=== PATIENT | male | born 1970 | race Caucasian/White ===

== ENCOUNTER 2019-09-26 20:06 | Emergency (ER) | payer MEDICAID ==
[2019-09-26 21:29] VITALS: BP 121/62; O2SAT 94
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
[2019-09-26 22:09] VITALS: PULSE 92
--- NOTE | 2019-09-27 08:43 | XRAY ---
Indication: Constipation. Obstruction. Multiple contiguous axial images obtained through the abdomen and pelvis without contrast as ordered. Comparison: None Lung bases demonstrates bibasilar atelectasis/scarring, right greater than left. Tiny left base calcified granuloma. No infiltrate or effusion. Heart is not enlarged. Noncontrasted stomach and bowel loops appear nonobstructed. Normal appendix. There is moderate diffuse scattered colonic fecal debris throughout. Also large rectal impaction. No free fluid/air. Remaining liver, gallbladder, pancreas, spleen, adrenal glands, kidneys, ureters, bladder, and aorta appear unremarkable for noncontrast exam. Osseous structures intact with mild dextroscoliosis centered at L1 and mild degenerative changes of both hips. No ventral or inguinal hernias. Impression: 1. Diffuse fecal stasis with rectal impaction. 2. Incidental bibasilar atelectasis/scarring, left base calcified granuloma, and chronic bony findings. 3. Remaining CT abdomen/pelvis without contrast exam is negative.
== END 2019-09-26 23:12 | disposition home or self-care (01) ==
LOC: ED 20:06
DX: K59.00 Constipation, unspecified (principal); K56.41 Fecal impaction; Z79.899 Other long term (current) drug therapy
CPT/HCPCS: 74176; 99283

== ENCOUNTER 2019-11-17 23:32 | Emergency (ER) | payer MEDICAID ==
--- NOTE | 2019-11-18 00:21 | ERPHSYRPT ---
- History of Present Illness Source: EMS Exam Limitations: other (Pt w TBI) Patient Subjective Stated Complaint: Urinary retention without urine output in the 15 hours Triage Nursing Assessment: Pt presented alert with evidence of TBI and mostly non-verbal. EMS reported urinary retention as chief complaint per care home staff. Staff advised that the patient had not produced urine in roughly 15 hours with oral intake of roughly 64 fl oz. Pupils 3mm reactive. Oral mucosa pink/dry. neck supple non-tender. Symmetrical chest expansion. Abdomen soft non- tender with distention noted over the bladder. Contractures noted to the bilateral upper exremities. Physician History: Pt w h/o UTI/Urinary retention presents from care home w urinary retention [id number]. Timing/Duration: other (15hrs) Activites at Onset: none Quality: other (Unable to relate) Severity of Pain-Max: none Severity of Pain-Current: none Modifying Factors: Improves With: nothing Associated Symptoms: other (Pt noncommunicative) Allergies/Adverse Reactions: levetiracetam [From [facility]] Allergy (Verified 11/17/19 23:36) Home Medications: AMITRIPTYLINE HCL 50 mg Tab [AMITRIPTYLINE HCL 50 mg Tablet] 100 mg PO HS 09/26/19 [History] Baclofen 10 mg [Lioresal 10 mg] 10 mg PO QID 09/26/19 [History] Bisacodyl [Laxative] 5 mg PO Q12H PRN PRN 09/26/19 [History] Cetirizine HCl [Allergy Relief] 10 mg PO Q12H PRN PRN 09/26/19 [History] Fluticasone Furoate [Arnuity Ellipta] 50 mcg IH DAILY 09/26/19 [History] Lansoprazole [Prevacid] 30 mg PO DAILY 09/26/19 [History] Multivitamin/Iron/Folic Acid [Centrum Adults Tablet] 1 tab PO DAILY 09/26/19 [History] PARoxetine HCL [Paroxetine HCl] 40 mg PO DAILY 09/26/19 [History] Polyethylene Glycol 3350 17 gm [Miralax Powder 17GM PACKET] 17 gm PO DAILY 09/26/19 [History] Potassium Chloride 20 meq PO DAILY 09/26/19 [History] Selenium Sulfide [Tersi Foam] 70 gm TP 3XW 09/26/19 [History] Sennosides [Senna] 2 tab PO DAILY 09/26/19 [History] Simvastatin 20 mg PO DAILY 09/26/19 [History] Sodium Phosphate,[place]-Dibasic [Fleet Enema] 133 ml RC Q12H PRN PRN 09/26/19 [History] clonazePAM [Clonazepam] 0.5 mg PO BID 09/26/19 [History] gemfibroziL [Gemfibrozil] 600 mg PO DAILY 09/26/19 [History] lamoTRIgine [Lamotrigine] 100 mg PO BID 09/26/19 [History] risperiDONE [Risperidone] 2 mg PO BID 09/26/19 [History] Hx Tetanus, Diphtheria Vaccination/Date Given: No Hx Influenza Vaccination/Date Given: Yes Hx Pneumococcal Vaccination/Date Given: No Travel Risk - International Travel Have you traveled outside of the country in past 3 weeks: No - Coronavirus Screening Are you exhibiting any of the following symptoms?: No Close contact with a COVID-19 positive Pt in past 14-21 Days: No - Past Medical History Pertinent Past Medical History: Yes Neurological History: Seizures, Other ENT History: No Pertinent History Cardiac History: No Pertinent History Respiratory History: No Pertinent History Endocrine Medical History: No Pertinent History Musculoskeletal History: Other GI Medical History: GERD History: Other Psycho-Social History: Anxiety, Depression Male Reproductive Disorders: No Pertinent History Other Medical History: hypertriglicedemia, neuro muscular dysfunciton of blatter, TBI, quadraplageia, GERD, hyperlipidemia - Past Surgical History Past Surgical History: (unknown at this time 09/26/19) - Social History Smoking Status: Never smoker Exposure to second hand smoke: No Drug Use: none Patient Lives Alone: No Significant Family History: no pertinent family hx - Review of Systems All Other Systems: Unable due to condition - Nursing Vital Signs Nursing Vital Signs: Initial Vital Signs Temperature 97.8 F 11/17/19 23:33 Pulse Rate 69 11/17/19 23:33 Respiratory Rate 18 11/17/19 23:33 Blood Pressure 105/66 11/17/19 23:33 O2 Sat by Pulse Oximetry 95 11/17/19 23:33 Pain Scale Pain Intensity 0 - Physical Exam General Appearance: no apparent distress Eye Exam: PERRL/EOMI Neck Exam: normal inspection Respiratory Exam: normal breath sounds, lungs clear, airway intact, No respiratory distress Cardiovascular Exam: regular rate/rhythm, normal heart sounds, normal peripheral pulses Gastrointestinal/Abdomen Exam: other (Supra-pubic area hard) Male Genital Exam: normal genitalia (Hypospadius) Extremity Exam: other (contractures) Neurologic Exam: alert (Pt alert but oriented x0 which is baseline) Skin Exam: normal color, warm, dry Lymphatic Exam: No adenopathy SpO2: 95 O2 Delivery: Room Air - Course Nursing assessment & vital signs reviewed: Yes Ordered Tests: Active Orders 24 hr Category Date Time Status Nichols [Catheter-[place] Nichols] STAT Care 11/17/19 23:35 Active CULTURE,URINE Stat Lab 11/17/19 00:14 Received UA W/RFX UR CULTURE Stat Lab 11/17/19 00:14 Completed Lab/Rad Data: Laboratory Results 11/17/19 Range/Units 00:14 Urine Color YELLOW (YELLOW) Urine Appearance CLEAR (CLEAR) Urine pH 7.0 (5-6) Ur Specific [place] 1.008 (1.005-1.025) Urine Protein NEGATIVE (Negative) Urine Ketones NEGATIVE (NEGATIVE) Urine Blood MODERATE (0-5) Gabe/ul Urine Nitrite NEGATIVE (NEGATIVE) Urine Bilirubin NEGATIVE (NEGATIVE) Urine Urobilinogen NEGATIVE (0-1) mg/dL Ur Leukocyte Esterase NEGATIVE (NEGATIVE) Urine WBC (Auto) 0-2 (0-5) /HPF Urine RBC (Auto) 11-15 (0-2) /HPF U Epithel Cells (Auto) NONE (FEW) /HPF Urine Bacteria (Auto) NONE SEEN (NEGATIVE) /HPF Urine Culture Reflexed ORDERED SEPARATELY (NO) Urine Glucose NEGATIVE (NEGATIVE) mg/dL - Progress Progress: improved Progress Note: 11/18/19 00:23 Nichols catheter placed per nursing after several attempts(14Fr). 1L urine kerry rangel. Counseled pt/family regarding: need for follow-up - Departure Departure Disposition: Home Clinical Impression: Urinary retention Condition: Stable Critical Care Time: No Referrals: CRYSTAL VITAL MD [Primary Care Provider] - Instructions: Urinary Retention (DC) Additional Instructions: Follow up with urologist or family MD in 1-2 days Return to ER as needed
[2019-11-18 00:22] LABS: Appearance CLEAR (CLEAR); Bilirubin NEGATIVE (NEGATIVE); Blood MODERATE Ery/ul (0-5); Glucose NEGATIVE (NEGATIVE); Ketones NEGATIVE (NEGATIVE); Leukocyte Esterase NEGATIVE (NEGATIVE); Nitrite NEGATIVE (NEGATIVE); Protein,Urine Dip NEGATIVE (Negative); Specific Gravity 1.008 (1.005-1.025); Urobilinogen NEGATIVE mg/dL (0-1); WBC 0-2 /HPF (0-5)
[2019-11-18 00:23] LABS: Bacteria NONE SEEN /HPF (NEGATIVE)
[2019-11-18 00:37] VITALS: BP 108/75; PULSE 60
[2019-11-18 00:56] VITALS: O2SAT 95
== END 2019-11-18 00:48 | disposition home or self-care (01) ==
LOC: ED 23:32
DX: R33.9 Retention of urine, unspecified (principal); Z79.899 Other long term (current) drug therapy
CPT/HCPCS: 51701; 51702; 81001; 87086; 99284

== ENCOUNTER 2019-11-25 16:22 | Observation (INO) | payer MEDICAID ==
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
[2019-11-25] MEDS ORDERED: Sodium Chloride 0.9% 1000 ML 1,000 ML IV STA (16:36)
[2019-11-25] MEDS ORDERED: FEVERALL 650 MG ONE ×2 (16:39→16:48)
[2019-11-25] MEDS ORDERED: FEVERALL 325 MG PR STA (16:39)
[2019-11-25] MEDS ORDERED: Sodium Chloride 0.9% 1000 ML 1,000 ML ONE (16:48)
[2019-11-25] MEDS ORDERED: FEVERALL 650 MG PR ONE (16:51)
--- NOTE | 2019-11-25 17:08 | XRAY ---
Indication: Fever. Comparison: None Portable chest underinflated. Query right base infiltrate versus atelectasis. Remaining heart and left lung unremarkable. Bony thorax intact with minimal degenerative changes.
[2019-11-25 17:30] LABS: Absolute Neutrophil Ct (ANC) 8.87 (1.4-6.9); BASOPHIL % 0.2 % (0.0-0.4); Basophil (Absolute #) 0.02 (0-0.4); Eosinophil % 0.5 % (0.00-5.0); Eosinophil (Absolute #) 0.05 (0-0.5); Hemoglobin 11.6 gm/dl (12.5-18.0); Lymphocyte (Absolute #) 0.56 (1.0-4.6); Lymphocytes % 5.2 % (24.0-44.0); Mean Cell Volume 92.5 fl (78-100); Mean Corpuscular Hemoglobin 29.8 pg (26-32); Mean Corpuscular Hgb Concent. 32.2 g/dl (32-36); Mean Platelet Volume 10.8 fl (7.5-11.0); Monocyte (Absolute #) 1.21 (0.0-1.3); Monocytes % 11.3 % (0.0-12.0); Neutrophil % 82.8 % (36.0-66.0); Platelet Count 250 K/mm3 (150-450); Red Blood Count 3.89 M/mm3 (4.1-5.6); Red Cell Distribution Width 14.2 % (11.5-14.0); White Blood Count 10.7 K/mm3 (4.0-10.5)
[2019-11-25 17:58] LABS: ALBUMIN 3.7 g/dL (3.5-5.0); ALKALINE PHOSPHATASE 175 U/L (38-126); ANION GAP 11.1 MEQ/L (5-15); BLOOD UREA NITROGEN 6 mg/dL (9-20); CHLORIDE 103 mmol/L (98-107); Calcium 8.4 mg/dL (8.4-10.2); Carbon Dioxide 23 mmol/L (22-30); Creatinine 1 0.42 mg/dL (0.66-1.25); Glucose 90 mg/dL (74-106); Potassium 3.7 mmol/L (3.5-5.1); SGOT/AST 34 U/L (17-59); SGPT/ALT 36 U/L (0-50); SODIUM 133 mmol/L (137-145); Total Protein 6.9 g/dL (6.3-8.2)
[2019-11-25 18:04] LABS: INFLUENZA A NEGATIVE (NEGATIVE); INFLUENZA B NEGATIVE (NEGATIVE); RESPIRATORY SYNCTIAL VIRUS NEGATIVE (Negative)
[2019-11-25] MEDS ORDERED: ROCEPHIN 1 Gm-D5w 50 ml Bag** 1 G/50 ML IVPB IV STA (18:04)
[2019-11-25 18:08] LABS: Appearance CLOUDY (CLEAR); Bacteria MANY /HPF (NEGATIVE); Bilirubin NEGATIVE (NEGATIVE); Blood LARGE Ery/ul (0-5); Epithelial Cells FEW /HPF (FEW); Glucose NEGATIVE (NEGATIVE); Ketones NEGATIVE (NEGATIVE); Leukocyte Esterase LARGE (NEGATIVE); Mucus SLIGHT /HPF (NEGATIVE); Nitrite POSITIVE (NEGATIVE); Protein,Urine Dip 100 (Negative); RBC >101 /HPF (0-2); Specific Gravity 1.006 (1.005-1.025); Urobilinogen NEGATIVE mg/dL (0-1); WBC 51-100 /HPF (0-5)
[2019-11-25] MEDS ORDERED: ROCEPHIN 1 Gm-D5w 50 ml Bag** 1 G/50 ML IVPB IV ONE (18:33)
[2019-11-25] MEDS ORDERED: Sodium Chloride 0.9% 500 ML 500 ML IV ONE ×2 (19:01→19:09)
[2019-11-25] MEDS ORDERED: Motrin 100 MG/5 ML PO ONE (19:02)
[2019-11-25] MEDS ORDERED: Motrin 100 MG/5 ML ONE (19:08)
[2019-11-25 19:51] LABS: Slide Review 1 YES
[2019-11-25] MEDS ORDERED: Motrin 100 MG/5 ML PO PRN (21:16)
[2019-11-25] MEDS: LOPID 600 MG PO SCH (21:58)
[2019-11-25] MEDS: lamICTAL 100MG TABLET PO SCH (21:58)
[2019-11-25] MEDS: Klonopin 0.5 MG PO SCH (21:58)
[2019-11-25] MEDS: Risperdal 1 MG PO SCH (21:59)
[2019-11-25] MEDS: LIORESAL 10 MG PO SCH (21:59)
[2019-11-25] MEDS: TYLENOL 325 MG PO PRN (22:01)
[2019-11-26 05:04] LABS: Absolute Neutrophil Ct (ANC) 12.34 (1.4-6.9); BASOPHIL % 0.1 % (0.0-0.4); Basophil (Absolute #) 0.02 (0-0.4); Eosinophil % 0.5 % (0.00-5.0); Eosinophil (Absolute #) 0.08 (0-0.5); Hematocrit 39.7 % (42-50); Hemoglobin 12.6 gm/dl (12.5-18.0); Lymphocyte (Absolute #) 0.95 (1.0-4.6); Lymphocytes % 6.2 % (24.0-44.0); Mean Cell Volume 93.2 fl (78-100); Mean Corpuscular Hemoglobin 29.6 pg (26-32); Mean Corpuscular Hgb Concent. 31.7 g/dl (32-36); Mean Platelet Volume 10.8 fl (7.5-11.0); Monocyte (Absolute #) 1.91 (0.0-1.3); Monocytes % 12.5 % (0.0-12.0); Neutrophil % 80.7 % (36.0-66.0); Platelet Count 254 K/mm3 (150-450); Red Blood Count 4.26 M/mm3 (4.1-5.6); Red Cell Distribution Width 14.6 % (11.5-14.0); White Blood Count 15.3 K/mm3 (4.0-10.5)
[2019-11-26 05:18] LABS: Slide Review 1 YES
[2019-11-26 05:22] LABS: ALBUMIN 3.9 g/dL (3.5-5.0); ALKALINE PHOSPHATASE 183 U/L (38-126); BLOOD UREA NITROGEN 5 mg/dL (9-20); CHLORIDE 102 mmol/L (98-107); Carbon Dioxide 26 mmol/L (22-30); Glucose 89 mg/dL (74-106); Potassium 3.8 mmol/L (3.5-5.1); SGOT/AST 37 U/L (17-59); SGPT/ALT 38 U/L (0-50); SODIUM 137 mmol/L (137-145); Total Protein 7.5 g/dL (6.3-8.2)
[2019-11-26] MEDS ORDERED: BISACODYL 5 MG PO PRN (09:30)
[2019-11-26] MEDS ORDERED: NON-FORMULARY ITEM (Cetirizine Hcl [Allergy Relief] 10 MG) PO PRN (09:30)
[2019-11-26] MEDS ORDERED: SELENIUM SULFIDE TP SCH (09:30)
[2019-11-26] MEDS ORDERED: SODIUM PHOSPHATE MONO DIBASIC RC PRN (09:30)
[2019-11-26] MEDS ORDERED: DULCOLAX 5 MG PO PRN (09:32)
[2019-11-26] MEDS ORDERED: CLARITIN 10 MG PO PRN (09:33)
[2019-11-26] MEDS ORDERED: MEDICATION INTERVENTION MC SCH (09:45)
[2019-11-26] MEDS ORDERED: MULTIVITAMIN PO SCH (10:00)
[2019-11-26] MEDS ORDERED: FLUTICASONE FUROATE 50 MCG IH SCH (10:00)
[2019-11-26] MEDS ORDERED: NON-FORMULARY ITEM (Potassium Chloride [Potassium Chloride] 20 MEQ) PO SCH (10:00)
[2019-11-26] MEDS ORDERED: SENNOSIDES PO SCH (10:00)
[2019-11-26] MEDS ORDERED: FOLIC ACID PO SCH (10:00)
[2019-11-26] MEDS ORDERED: NON-FORMULARY ITEM (Lansoprazole [Prevacid] 30 MG) PO SCH (10:00)
[2019-11-26] MEDS ORDERED: CITROMA 296 ML PO SCH (10:00)
[2019-11-26] MEDS ORDERED: Klor Con 10 MEQ PO SCH (10:00)
[2019-11-26] MEDS ORDERED: IRON PO SCH (10:00)
[2019-11-26] MEDS: Sodium Chloride 0.9% 1000 ML 1,000 ML IV SCH (11:17)
[2019-11-26] MEDS: SENOKOT 8.6 MG PO SCH (11:22)
[2019-11-26] MEDS: Miralax Powder 17GM PACKET PO SCH (11:22)
[2019-11-26] MEDS: Risperdal 1 MG PO SCH ×2 (11:23→21:54)
[2019-11-26] MEDS: Klonopin 0.5 MG PO SCH ×2 (11:23→21:54)
[2019-11-26] MEDS: LIORESAL 10 MG PO SCH ×4 (11:23→21:55)
[2019-11-26] MEDS: THERAGRAN MULTIVITAMIN PO SCH (11:24)
[2019-11-26] MEDS: Paxil 20 MG PO SCH (11:24)
[2019-11-26] MEDS: ZOCOR 20MG PO SCH (11:24)
[2019-11-26] MEDS: Protonix 40MG Tablet PO SCH (11:25)
[2019-11-26] MEDS: lamICTAL 100MG TABLET PO SCH ×2 (11:25→21:54)
[2019-11-26] MEDS: LOPID 600 MG PO SCH ×2 (11:27→21:55)
[2019-11-26] MEDS: TYLENOL 325 MG PO PRN ×2 (12:20→22:01)
[2019-11-26] MEDS: K-LYTE 25 MEQ PO SCH (13:29)
[2019-11-26] MEDS ORDERED: PHARMACY DOSING REQUIRED: VANCOMYCIN IV STA (16:51)
[2019-11-26] MEDS ORDERED: ROCEPHIN 1 Gm-D5w 50 ml Bag** 1 G/50 ML IVPB IV SCH (18:00)
[2019-11-26] MEDS: VANCOMYCIN 1 GRAM/200 ML BAG 1 GM/200 ML PIGGYBACK IV SCH (18:32)
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
[2019-11-27] MEDS: Sodium Chloride 0.9% 1000 ML 1,000 ML IV SCH ×3 (01:33→15:34)
[2019-11-27] MEDS: VANCOMYCIN 1 GRAM/200 ML BAG 1 GM/200 ML PIGGYBACK IV SCH (07:28)
[2019-11-27] MEDS: Miralax Powder 17GM PACKET PO SCH (09:28)
[2019-11-27] MEDS: ENOXAPARIN SODIUM SQ SCH (09:28)
[2019-11-27] MEDS: K-LYTE 25 MEQ PO SCH (09:28)
[2019-11-27] MEDS: ROCEPHIN 1 Gm-D5w 50 ml Bag** 1 G/50 ML IVPB IV SCH (09:28)
[2019-11-27] MEDS: ZOCOR 20MG PO SCH (09:28)
[2019-11-27] MEDS: Risperdal 1 MG PO SCH ×2 (09:29→22:20)
[2019-11-27] MEDS: Protonix 40MG Tablet PO SCH (09:29)
[2019-11-27] MEDS: lamICTAL 100MG TABLET PO SCH ×2 (09:29→22:20)
[2019-11-27] MEDS: SENOKOT 8.6 MG PO SCH ×2 (09:29→09:30)
[2019-11-27] MEDS: Paxil 20 MG PO SCH (09:29)
[2019-11-27] MEDS: Klonopin 0.5 MG PO SCH ×2 (09:29→22:20)
[2019-11-27] MEDS: THERAGRAN MULTIVITAMIN PO SCH (09:30)
[2019-11-27] MEDS: LIORESAL 10 MG PO SCH ×4 (09:30→22:20)
[2019-11-27] MEDS: LOPID 600 MG PO SCH ×2 (09:44→22:21)
[2019-11-27] MEDS ORDERED: [UNRECOGNIZED DRUG - OTHER] TP SCH (10:00)
--- NOTE | 2019-11-27 21:48 | PCM.NOTE ---
Date and Time: 11/27/198 Objective Exam Wound Assessment: Skin/Wound Assessment Wound/Incision Assessment Start: 11/25/19 22:38 Text: Status: Active Freq: Q6H Protocol: Document 11/27/19 16:00 LIZZ (Rec: 11/27/19 16:31 LIZZ [id number]) Wound/Incision Assessment Neck Wound Assessment Shift Assessment Wound Type rash Wound Stage Non Pressure Wound Drainage Amount None General Appearance Open to air Surrounding Tissue [place] Wound Photo Photo Taken No OBJECTIVE DATA Vital Signs: Vital Signs - 24 hr Temp Pulse Resp BP Pulse Ox 11/27/19 20:00 97.7 F 62 18 140/73 94 L 11/27/19 16:00 96.2 F 61 16 105/58 90 L 11/27/19 12:00 96.5 F 60 17 91/55 98 11/27/19 07:24 96.4 F 57 L 17 112/65 96 11/27/19 04:15 97.1 F 57 L 20 81/52 94 L 11/26/19 23:31 99.7 F 80 17 90/60 95 Pain Assessment - Last Documented Pain Intensity 2 Pain Scale Used FLACC Intake and Output: Intake & Output 11/25/19 11/26/19 11/27/19 11/28/19 11:59 11:59 11:59 11:59 Intake Total 920 2765 1520 Output Total 650 3250 1300 Balance 270 -485 220 Weight 66.7 kg 65 kg Multi-Disciplinary Progress Notes: Multi-Disciplinary Progress Notes 11/27/19 15:41 Case Management Note by Krista Gutierrez SPOKE WITH CAREGIVER. REPORTS THAT PT WAS SUPPOSED TO SEE TAMIKA CASTANEDA NP, TOMORROW IN OFFICE FOR UROLOGY, AT 2:30 PM. CAREGIVER REPORTS THAT SHE CANCELL ED THAT APPT, AND OFFICE STAFF ADVISED HER THAT HOSPITAL WOULD NEED TO CALL TO RESCHEDULE. THIS [facility] DID CALL OFFICE IN ATTEMPT TO RESCHEDULE, SPOKE WITH REP THAT REPORTED STAFF GONE FOR THE DAY, THEY WILL CALL CASE MANAGEMENT WITH APPT DATE AND TIME IN THE MORNING, 11/28/19. Initialized on 11/27/19 15:41 - END OF NOTE Assessment/Plan (1) UTI (urinary tract infection) Current Visit: Yes Status: Acute Code(s): N39.0 - URINARY TRACT INFECTION, SITE NOT SPECIFIED (2) Hx of traumatic brain injury Current Visit: Yes Status: Acute Code(s): Z87.820 - PERSONAL HISTORY OF TRAUMATIC BRAIN INJURY (3) Febrile seizure Current Visit: Yes Status: Acute Code(s): R56.00 - SIMPLE FEBRILE CONVULSION S (4) Fever Current Visit: Yes Status: Acute Code(s): R50.9 - FEVER, UNSPECIFIED (5) Urinary retention Current Visit: No Status: Acute Code(s): R33.9 - RETENTION OF URINE, UNSPECIFIED
[2019-11-28] MEDS: Sodium Chloride 0.9% 1000 ML 1,000 ML IV SCH (03:35)
[2019-11-28 05:02] LABS: Absolute Neutrophil Ct (ANC) 8.81 (1.4-6.9); BASOPHIL % 0.2 % (0.0-0.4); Basophil (Absolute #) 0.02 (0-0.4); Eosinophil % 2.9 % (0.00-5.0); Eosinophil (Absolute #) 0.32 (0-0.5); Hematocrit 35.9 % (42-50); Hemoglobin 11.5 gm/dl (12.5-18.0); Lymphocyte (Absolute #) 1.29 (1.0-4.6); Lymphocytes % 11.5 % (24.0-44.0); Mean Cell Volume 93.2 fl (78-100); Mean Corpuscular Hemoglobin 29.9 pg (26-32); Mean Platelet Volume 11.7 fl (7.5-11.0); Monocyte (Absolute #) 0.74 (0.0-1.3); Monocytes % 6.6 % (0.0-12.0); Neutrophil % 78.8 % (36.0-66.0); Platelet Count 216 K/mm3 (150-450); Red Blood Count 3.85 M/mm3 (4.1-5.6); Red Cell Distribution Width 14.5 % (11.5-14.0); White Blood Count 11.2 K/mm3 (4.0-10.5)
[2019-11-28 05:24] LABS: ANION GAP 10.5 MEQ/L (5-15); BLOOD UREA NITROGEN 3 mg/dL (9-20); CHLORIDE 108 mmol/L (98-107); Calcium 8.3 mg/dL (8.4-10.2); Carbon Dioxide 22 mmol/L (22-30); Creatinine 1 0.37 mg/dL (0.66-1.25); Glucose 90 mg/dL (74-106); Potassium 3.5 mmol/L (3.5-5.1); SODIUM 137 mmol/L (137-145)
--- NOTE | 2019-11-28 08:28 | PCM.NOTE ---
Date and Time: 11/28/19822 Subjective Assessment: 49 yr old male seen and examined this am. Patient denies any pain and would like to go back to senior living. He denies any headaches. He reports he has been eating ok. No other concerns at this time. - Review of Systems Constitutional: No Fever Genitourinary Symptoms: Other (Gutierrez Cath) All Other Systems: Unable due to condition (Limited review of systems due to hx of TBI) Objective Exam General Appearance: no apparent distress Neurologic Exam: alert, cooperative, motor deficits, other (Patient has difficult speech to understand but is able to respond to some questions and answers appropriately) Skin Exam: normal color, warm, dry, rash, other (Maculopapular rash along L side of neck along jaw line) Wound Assessment: Skin/Wound Assessment Wound/Incision Assessment Start: 11/25/19 22:38 Text: Status: Active Freq: Q6H Protocol: Document 11/28/19 04:00 EG (Rec: 11/28/19 04:16 EG [id number]) Wound/Incision Assessment Neck Wound Assessment Shift Assessment Wound Type rash Wound Stage Non Pressure Wound Drainage Amount None General Appearance Open to air Surrounding Tissue [place] Wound Photo Photo Taken No Eye Exam: No scleral icterus Ears, Nose, Throat Exam: moist mucous membranes Neck Exam: other (trach scar) Respiratory Exam: normal breath sounds, lungs clear, No respiratory distress, No crackles/rales, No wheezing Cardiovascular Exam: regular rate/rhythm, No murmur, No friction rub, No gallop Gastrointestinal/Abdomen Exam: soft, normal bowel sounds, No tenderness, No distention Extremity Exam: other (Multiple contractures and muscle wasting.), No pedal edema, No swelling, No tenderness Back Exam: other Male Genitalia Exam: other (Gutierrez cath) OBJECTIVE DATA Vital Signs: Vital Signs - 24 hr Temp Pulse Resp BP Pulse Ox 11/28/19 07:11 97.3 F 69 18 114/74 91 L 11/28/19 03:55 97.7 F 70 17 117/66 93 L 11/27/19 23:46 98.9 F 66 17 133/66 95 11/27/19 20:00 97.7 F 62 18 140/73 94 L 11/27/19 16:00 96.2 F 61 16 105/58 90 L 08/05/20 12:00 96.5 F 60 17 91/55 98 Pain Assessment - Last Documented Pain Intensity 2 Pain Scale Used [facility] Intake and Output: Intake & Output 11/25/19 11/26/19 11/27/19 11/28/19 11:59 11:59 11:59 11:59 Intake Total 920 2765 2941 Output Total 650 3250 2100 Balance 270 -485 841 Weight 66.7 kg 65 kg 64.4 kg Lab Results: Lab Results-Last 24 Hours 11/28/19 11/28/19 Range/Units 04:24 04:24 WBC 11.2 H (4.0-10.5) K/mm3 RBC 3.85 L (4.1-5.6) M/mm3 Hgb 11.5 L (12.5-18.0) gm/dl Hct 35.9 L (42-50) % MCV 93.2 (78-100) fl MCH 29.9 (26-32) pg MCHC 32.0 (32-36) g/dl RDW 14.5 H (11.5-14.0) % Plt Count 216 (150-450) K/mm3 MPV 11.7 H (7.5-11.0) fl Gran % 78.8 H (36.0-66.0) % Eos # (Auto) 0.32 (0-0.5) Absolute Lymphs (auto) 1.29 (1.0-4.6) Absolute Monos (auto) 0.74 (0.0-1.3) Lymphocytes % 11.5 L (24.0-44.0) % Monocytes % 6.6 (0.0-12.0) % Eosinophils % 2.9 (0.00-5.0) % Basophils % 0.2 (0.0-0.4) % Absolute Granulocytes 8.81 H (1.4-6.9) Basophils # 0.02 (0-0.4) Sodium 137 (137-145) mmol/L Potassium 3.5 (3.5-5.1) mmol/L Chloride 108 H (98-107) mmol/L Carbon Dioxide 22 (22-30) mmol/L Anion Gap 10.5 (5-15) MEQ/L BUN 3 L (9-20) mg/dL Creatinine 0.37 L (0.66-1.25) mg/dL Estimated GFR > 60.0 ML/MIN Glucose 90 (74-106) mg/dL Calcium 8.3 L (8.4-10.2) mg/dL Multi-Disciplinary Progress Notes: Multi-Disciplinary Progress Notes 11/27/19 15:41 Case Management Note by Krista Gutierrez SPOKE WITH CAREGIVER. REPORTS THAT PT WAS SUPPOSED TO SEE TAMIKA CASTANEDA, FIELD ADMINISTRATOR, TOMORROW IN OFFICE FOR UROLOGY, AT 2:30 PM. CAREGIVER REPORTS THAT SHE CANCELLED THAT APPT, AND OFFICE STAFF ADVISED HER THAT HOSPITAL WOULD NEED TO CALL TO RESCHEDULE. THIS [employer] SUPERVISOR DID CALL OFFICE IN ATTEMPT TO RESCHEDULE, SPOKE WITH REP THAT REPORTED STAFF GONE FOR THE DAY, THEY WILL CALL CASE MANAGEMENT WITH APPT DATE AND TIME IN THE MORNING, 11/28/19. Initialized on 11/27/19 15:41 - END OF NOTE Assessment/Plan (1) UTI (urinary tract infection) Current Visit: Yes Status: Acute Assessment & Plan: Patient had recently been seen in hospital and had gutierrez cath placed. Patient then developed fever and had a seizure was brought to ER. Patient had new gutierrez cath placed. He was started on Rocephin. White count initially trended up then has started to trend down. Patient had vanc for possible bactermia however it was suspected to be a contaminate and discontinued. Patient will need to follow up with urology for management of retention. Code(s): N39.0 - URINARY TRACT INFECTION, SITE NOT SPECIFIED (2) Hx of traumatic brain injury Current Visit: Yes Status: Acute Assessment & Plan: Limited speech able to answer most questions but difficult to understand. Has hx of seizures as a result and is on multiple anti seizure medications. Code(s): Z87.820 - PERSONAL HISTORY OF TRAUMATIC BRAIN INJURY (3) Febrile seizure Current Visit: Yes Status: Acute Assessment & Plan: Hx of seizures but well controlled on medications. This was likely a fever induced seizure although more rare for adult population. Patient has been fever free and not requiring antipyretics Code(s): R56.00 - SIMPLE FEBRILE CONVULSIONS (4) Fever Current Visit: Yes Status: Acute Assessment & Plan: Present on admission however patient has been fever free for 24 hours. Code(s): R50.9 - FEVER, UNSPECIFIED (5) Urinary retention Current Visit: No Status: Acute Assessment & Plan: Hx of absent bowel/bladder control following TBI with hx of quadraplegia and has gutierrez cath placed and will need to follow up with urology. Code(s): R33.9 - RETENTION OF URINE, UNSPECIFIED
[2019-11-28] MEDS: Miralax Powder 17GM PACKET PO SCH (11:20)
[2019-11-28] MEDS: ENOXAPARIN SODIUM SQ SCH (11:20)
[2019-11-28] MEDS: LIORESAL 10 MG PO SCH ×3 (11:21→15:23)
[2019-11-28] MEDS: THERAGRAN MULTIVITAMIN PO SCH (11:21)
[2019-11-28] MEDS: SENOKOT 8.6 MG PO SCH (11:21)
[2019-11-28] MEDS: Klonopin 0.5 MG PO SCH (11:21)
[2019-11-28] MEDS: lamICTAL 100MG TABLET PO SCH (11:21)
[2019-11-28] MEDS: K-LYTE 25 MEQ PO SCH (11:21)
[2019-11-28] MEDS: Paxil 20 MG PO SCH (11:22)
[2019-11-28] MEDS: Risperdal 1 MG PO SCH (11:22)
[2019-11-28] MEDS: ROCEPHIN 1 Gm-D5w 50 ml Bag** 1 G/50 ML IVPB IV SCH (11:22)
[2019-11-28] MEDS: ZOCOR 20MG PO SCH (11:22)
[2019-11-28] MEDS: Protonix 40MG Tablet PO SCH (11:22)
[2019-11-28] MEDS: LOPID 600 MG PO SCH (11:23)
[2019-11-28 11:49] VITALS: BP 112/69; PULSE 67; O2SAT 93
--- NOTE | 2019-11-28 12:25 | PCM.DS ---
Discharge Summary Date of Admission: 11/25/19 21:15 Date of Discharge: 11/28/2019 Admitting Physician: KARLY FREEMAN MD Primary Care Provider: CRYSTAL VITAL MD Allergies Allergies levetiracetam [From [facility]] Allergy (Verified 11/25/19 16:38) Hospital Summary - Vitals & Intake/Output Vital Signs: Vital Signs Temperature 98.2 F 11/28/19 11:48 Pulse Rate 67 11/28/19 11:48 Respiratory Rate 16 11/28/19 11:48 Blood Pressure 112/69 11/28/19 11:48 O2 Sat by Pulse Oximetry 93 L 11/28/19 11:48 Intake & Output: Intake & Output 11/26/19 11/27/19 11/28/19 11/29/19 11:59 11:59 11:59 11:59 Intake Total 920 2765 3301 Output Total 650 3250 2100 Balance 270 -485 1201 Weight 66.7 kg 65 kg 64.4 kg - Lab Result Diagrams: 11/28/19 04:24 11/28/19 04:24 Lab Results-Last 24 Hrs: Lab Results-Last 24 Hours 11/28/19 11/28/19 Range/Units 04:24 04:24 WBC 11.2 H (4.0-10.5) K/mm3 RBC 3.85 L (4.1-5.6) M/mm3 Hgb 11.5 L (12.5-18.0) gm/dl Hct 35.9 L (42-50) % MCV 93.2 (78-100) fl MCH 29.9 (26-32) pg MCHC 32.0 (32-36) g/dl RDW 14.5 H (11.5-14.0) % Plt Count 216 (150-450) K/mm3 MPV 11.7 H (7.5-11.0) fl Gran % 78.8 H (36.0-66.0) % Eos # (Auto) 0.32 (0-0.5) Absolute Lymphs (auto) 1.29 (1.0-4.6) Absolute Monos (auto) 0.74 (0.0-1.3) Lymphocytes % 11.5 L (24.0-44.0) % Monocytes % 6.6 (0.0-12.0) % Eosinophils % 2.9 (0.00-5.0) % Basophils % 0.2 (0.0-0.4) % Absolute Granulocytes 8.81 H (1.4-6.9) Basophils # 0.02 (0-0.4) Sodium 137 (137-145) mmol/L Potassium 3.5 (3.5-5.1) mmol/L Chloride 108 H (98-107) mmol/L Carbon Dioxide 22 (22-30) mmol/L Anion Gap 10.5 (5-15) MEQ/L BUN 3 L (9-20) mg/dL Creatinine 0.37 L (0.66-1.25) mg/dL Estimated GFR > 60.0 ML/MIN Glucose 90 (74-106) mg/dL Calcium 8.3 L (8.4-10.2) mg/dL Micro Results-Entire Visit: Microbiology 11/25/19 17:10 Blood Culture Gram Stain - Final Blood Blood Culture - Preliminary Coagulase Negative Staph. Possible Contaminant. Clinical judgement required. NO FURTHER WORKUP WILL BE PERFORMED UNLESS PHYSICIAN REQUESTED WITHIN THE NEXT 72 HOURS 11/25/19 17:50 Urine Culture - Final Catherized Klebsiella Oxytoca Discharge Exam Wound Assessment: Skin/Wound Assessment Wound/Incision Assessment Start: 11/25/19 22:38 Text: Status: Active Freq: Q6H Protocol: Document 11/28/19 04:00 EG (Rec: 11/28/19 04:16 EG [id number]) Wound/Incision Assessment Neck Wound Assessment Shift Assessment Wound Type rash Wound Stage Non Pressure Wound Drainage Amount None General Appearance Open to air Surrounding Tissue [place] Wound Photo Photo Taken No Final Diagnosis/Problem List - Final Discharge Diagnosis/Problem (1) UTI (urinary tract infection) Current Visit: Yes Status: Acute Code(s): N39.0 - URINARY TRACT INFECTION, SITE NOT SPECIFIED (2) Hx of traumatic brain injury Current Visit: Yes Status: Acute Code(s): Z87.820 - PERSONAL HISTORY OF TRAUMATIC BRAIN INJURY (3) Febrile seizure Current Visit: Yes Status: Acute Code(s): R56.00 - SIMPLE FEBRILE CONVULSIONS (4) Fever Current Visit: Yes Status: Acute Code(s): R50.9 - FEVER, UNSPECIFIED (5) Urinary retention Current Visit: No Status: Acute Code(s): R33.9 - RETENTION OF URINE, UNSPECIFIED - Discharge Disposition: Home, Self-Care Condition: Stable Prescriptions: New Levofloxacin [Levaquin 500 MG Tablet] 500 mg PO DAILY #7 tablet Continue risperiDONE [Risperidone] 2 mg PO BID lamoTRIgine [Lamotrigine] 100 mg PO BID gemfibroziL [Gemfibrozil] 600 mg PO BID clonazePAM [Clonazepam] 0.5 mg PO BID Simvastatin 20 mg PO DAILY Selenium Sulfide [Tersi Foam] 70 gm TP 3XW Potassium Chloride 20 meq PO DAILY PARoxetine HCL [Paroxetine HCl] 40 mg PO DAILY Fluticasone Furoate [Arnuity Ellipta] 50 mcg IH DAILY AMITRIPTYLINE HCL 50 mg Tab [AMITRIPTYLINE HCL 50 mg Tablet] 100 mg PO HS Polyethylene Glycol 3350 17 gm [Miralax Powder 17GM PACKET] 17 gm PO DAILY Sodium Phosphate,[place]-Dibasic [Fleet Enema] 133 ml RC Q12H PRN PRN PRN Reason: Constipation Sennosides [Senna] 2 tab PO DAILY Multivitamin/Iron/Folic Acid [Centrum Adults Tablet] 1 tab PO DAILY Lansoprazole [Prevacid] 30 mg PO DAILY Cetirizine HCl [Allergy Relief] 10 mg PO Q12H PRN PRN PRN Reason: Allergies Bisacodyl [Laxative] 5 mg PO Q12H PRN PRN PRN Reason: Constipation Baclofen 10 mg [Lioresal 10 mg] 10 mg PO QID Magnesium Citrate 296 ml [Citroma 296 ml] 296 ml PO QID 1 Days #20 ml Additional Instructions: Patient needs to follow up with PCP as well Patient needs repeat CBC tomorrow Follow up with: TAMIKA CASTANEDA NP [NON-STAFF PHY W/O PRIVILEGES] - 12/05/19 1:30 pm (KEEP APPOINTMENT WITH TAMIKA CASTANEDA NP, UROLOGY ON November AT 1:30 PM. YOU WILL NEED TO REMOVE [employer] CATHETER AT 6:00 AM, THE DAY OF HIS APPOINTMENT. YOU MAY CALL TAMIKA CALVERT' NURSE, AT [phone] FOR ANY QUESTIONS.)
== END 2019-11-28 15:25 | disposition home or self-care (01) ==
LOC: ED 16:22 → MED SURG 21:15
PROVIDERS: ADMIT Family Medicine; ATTEND Family Medicine
DX: N39.0 Urinary tract infection, site not specified (principal); G82.50 Quadriplegia, unspecified; Z87.820 Personal history of traumatic brain injury; R56.00 Simple febrile convulsions; F03.90 Unspecified dementia, unspecified severity, without behavioral disturbance, psychotic disturbance, mood disturbance, and anxiety; R33.9 Retention of urine, unspecified; Z79.899 Other long term (current) drug therapy
CPT/HCPCS: 36000; 36415; 51702; 71045; 80048; 80053; 81001; 83605; 84134; 85025; 86308; 87040; 87077; 87086; 87186; 87631; 87651; 87798; 93041; 94760; 96360; 96361; 96365; 99285; G0378; J0696; J1650; A9270-GY; J3370

== ENCOUNTER 2021-06-07 10:45 | Observation (INO) | payer MEDICAID ==
[2021-06-07] MEDS ORDERED: Sodium Chloride 0.9% 1000 ML 1,000 ML IV SCH ×2 (11:15→19:49)
[2021-06-07] MEDS ORDERED: Sodium Chloride 0.9% 1000 ML 1,000 ML ONE ×2 (11:20→17:36)
[2021-06-07 11:55] LABS: Absolute Neutrophil Ct (ANC) 5.27 (1.4-6.9); Basophil (Absolute #) 0.01 (0-0.4); Eosinophil % 0.9 % (0.00-5.0); Eosinophil (Absolute #) 0.07 (0-0.5); Lymphocyte (Absolute #) 1.02 (1.0-4.6); Lymphocytes % 13.7 % (24.0-44.0); Mean Cell Volume 93.5 fl (78-100); Mean Corpuscular Hemoglobin 30.4 pg (26-32); Mean Corpuscular Hgb Concent. 32.5 g/dl (32-36); Mean Platelet Volume 10.4 fl (7.5-11.0); Monocyte (Absolute #) 1.07 (0.0-1.3); Monocytes % 14.4 % (0.0-12.0); Neutrophil % 70.9 % (36.0-66.0); Platelet Count 197 K/mm3 (150-450); Red Blood Count 4.28 M/mm3 (4.1-5.6); Red Cell Distribution Width 14.3 % (11.5-14.0); White Blood Count 7.4 K/mm3 (4.0-10.5)
--- NOTE | 2021-06-07 12:01 | XRAY ---
Indication: Hypotension. Comparison: November 25, 2019. Portable apical lordotic chest remains underinflated with new mild bibasilar subsegmental atelectasis. Remaining heart and upper lungs clear. Bony thorax intact again with mild degenerative changes. New air distended stomach and colon better evaluated with CT.
[2021-06-07 12:11] LABS: ALBUMIN 3.5 g/dL (3.5-5.0); ALKALINE PHOSPHATASE 77 U/L (38-126); BLOOD UREA NITROGEN 16 mg/dL (9-20); CHLORIDE 99 mmol/L (98-107); Calcium 8.8 mg/dL (8.4-10.2); Carbon Dioxide 29 mmol/L (22-30); Creatinine 1 0.52 mg/dL (0.66-1.25); EST GLOMERULAR FILTRATION RATE > 60.0 ML/MIN; Glucose 91 mg/dL (74-106); Potassium 3.3 mmol/L (3.5-5.1); SGOT/AST 29 U/L (17-59); SGPT/ALT 22 U/L (0-50); SODIUM 137 mmol/L (137-145); Total Protein 6.6 g/dL (6.3-8.2)
[2021-06-07] MEDS ORDERED: Klor Con 10 MEQ PO ONE ×2 (12:20→12:27)
[2021-06-07 12:21] LABS: Appearance SLIGHTLY CLOUDY (CLEAR); Bilirubin NEGATIVE (NEGATIVE); Blood SMALL Ery/ul (0-5); Glucose NEGATIVE (NEGATIVE); Ketones TRACE (NEGATIVE); Leukocyte Esterase NEGATIVE (NEGATIVE); Mucus SLIGHT /HPF (NEGATIVE); Nitrite NEGATIVE (NEGATIVE); Protein,Urine Dip 100 (Negative); RBC 26-50 /HPF (0-2); Specific Gravity 1.033 (1.005-1.025); Urobilinogen 2 mg/dL (0-1)
[2021-06-07 12:28] LABS: Bacteria RARE /HPF (NEGATIVE)
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
--- NOTE | 2021-06-07 14:30 | XRAY ---
Indication: Abdomen pain. Obstruction. Multiple contiguous axial images obtained through the abdomen and pelvis without contrast. Comparison: September 26, 2019. Lung bases demonstrates new bibasilar infiltrates/atelectasis with small effusions left greater than right. Heart is not enlarged. Patient's arms produces beam artifact. Stomach is now markedly distended with air and fluid. Also new diffuse fluid distended small bowel loops throughout up to 3.8 cm in diameter with mild circumferential wall thickening and minimal fluid leveling. There remains moderate fecal debris throughout. New abnormally air distended sigmoid colon up to 5 cm in diameter. In the coronal plane, dilated sigmoid colon is inverted directed towards the right upper quadrant as seen with sigmoid volvulus. However there is distal rectal bowel gas with fluid leveling as seen with diarrhea. Additional partial differential would include functional megacolon versus ileus. No free fluid/air. Remaining visualized liver, gallbladder, pancreas, spleen, adrenal glands, kidneys, ureters, bladder, and aorta are unremarkable for noncontrast exam. Osseous structures intact again with mild degenerative changes of both hips. Impression: 1. New abnormal distended stomach and small bowel loops with fluid leveling, ileus versus gastroenteritis. 2. New abnormal distended sigmoid colon. Partial differential offered includes sigmoid volvulus, functional megacolon, and ileus.. 3. New bibasilar infiltrates/atelectasis/effusions. 4. Again moderate diffuse fecal stasis.
[2021-06-07 14:31] LABS: COVID AG -BINAX NOW RAPID TEST NEGATIVE (NEGATIVE)
[2021-06-07] MEDS ORDERED: Zosyn 3.375 GM Vial 3.375 GM in Sodium Chloride 100ML MINI-BAG PLUS 100 ML IV ONE (16:32)
--- NOTE | 2021-06-07 17:06 | XRAY ---
Indication: NG tube placement. Comparison: Taken earlier in the day. Portable chest demonstrates new NG tube traversing chest with tip in stomach. Remaining chest unchanged again underinflated with CT proven bibasilar infiltrates/atelectasis/effusions. Heart not enlarged. No new cardiopulmonary abnormalities.
[2021-06-07] MEDS ORDERED: Sodium Chloride 100ML MINI-BAG PLUS 100 ML IV ONE (17:29)
[2021-06-07] MEDS ORDERED: Zosyn 3.375 GM Vial IV ONE (17:29)
[2021-06-07] MEDS ORDERED: DIPRIVAN 200 MG/20 ML IV ONE (18:10)
[2021-06-07] MEDS ORDERED: Xylocaine-Mpf 2% 5 Ml Vial ONE (18:10)
[2021-06-07] MEDS ORDERED: Zofran 4 MG/2 ML VIAL IV PRN (19:49)
[2021-06-07] MEDS ORDERED: MORPHINE SULFATE 2 MG INJ IV PRN (19:49)
[2021-06-07] MEDS: Zosyn 3.375 GM Vial 3.375 GM in Sodium Chloride 100ML MINI-BAG PLUS 100 ML IV SCH ×2 (19:56→23:44)
[2021-06-07] MEDS: Sodium Chloride 0.9% W/ 20 mEq KCl/LITER 1,000 ML IV SCH (21:54)
[2021-06-07] MEDS ORDERED: lamICTAL 100MG TABLET PO ONE (22:00)
[2021-06-07] MEDS ORDERED: Risperdal 1 MG PO ONE (22:00)
[2021-06-08 00:12] LABS: INFLUENZA A NEGATIVE (NEGATIVE); INFLUENZA B NEGATIVE (NEGATIVE); RESPIRATORY SYNCTIAL VIRUS NEGATIVE (Negative); SARS-CoV-2 Xpert Express NEGATIVE (NEGATIVE)
[2021-06-08] MEDS: Zosyn 3.375 GM Vial 3.375 GM in Sodium Chloride 100ML MINI-BAG PLUS 100 ML IV SCH ×4 (05:07→23:48)
[2021-06-08 05:47] LABS: ALBUMIN 2.7 g/dL (3.5-5.0); ALKALINE PHOSPHATASE 62 U/L (38-126); ANION GAP 12.7 MEQ/L (5-15); BLOOD UREA NITROGEN 10 mg/dL (9-20); CHLORIDE 106 mmol/L (98-107); Calcium 7.9 mg/dL (8.4-10.2); Carbon Dioxide 23 mmol/L (22-30); Creatinine 1 0.34 mg/dL (0.66-1.25); EST GLOMERULAR FILTRATION RATE > 60.0 ML/MIN; Glucose 65 mg/dL (74-106); Potassium 3.5 mmol/L (3.5-5.1); SGOT/AST 22 U/L (17-59); SGPT/ALT 17 U/L (0-50); SODIUM 138 mmol/L (137-145); Total Protein 5.5 g/dL (6.3-8.2)
[2021-06-08 06:31] LABS: Absolute Neutrophil Ct (ANC) 3.87 (1.4-6.9); Basophil (Absolute #) 0.02 (0-0.4); Eosinophil % 1.6 % (0.00-5.0); Eosinophil (Absolute #) 0.09 (0-0.5); Hematocrit 31.8 % (42-50); Hemoglobin 10.2 gm/dl (12.5-18.0); Lymphocyte (Absolute #) 1.14 (1.0-4.6); Lymphocytes % 19.7 % (24.0-44.0); Mean Cell Volume 95.2 fl (78-100); Mean Corpuscular Hemoglobin 30.5 pg (26-32); Mean Corpuscular Hgb Concent. 32.1 g/dl (32-36); Mean Platelet Volume 10.4 fl (7.5-11.0); Monocyte (Absolute #) 0.68 (0.0-1.3); Monocytes % 11.7 % (0.0-12.0); Neutrophil % 66.7 % (36.0-66.0); Platelet Count 167 K/mm3 (150-450); Red Blood Count 3.34 M/mm3 (4.1-5.6); Red Cell Distribution Width 14.1 % (11.5-14.0); White Blood Count 5.8 K/mm3 (4.0-10.5)
--- NOTE | 2021-06-08 08:43 | XRAY ---
Indication: Megacolon. Ileus. Comparison: CT abdomen/pelvis 1 day earlier. 2 view abdomen demonstrates new NG tube with distal tube folded over with tip at GE junction. Diminished air distended stomach and bowel loops, most notably sigmoid colon. No focal bowel dilatation, obstruction, or free air. Solid organs unremarkable. Osseous structures intact with mild osteopenia and degenerative changes.
--- NOTE | 2021-06-08 08:44 | XRAY ---
Indication: NG tube placement. Comparison: One day earlier. Portable chest again demonstrates NG tube traversing chest with distal tube now folded over with the tip at the level of the GE junction. Remaining chest unchanged again underinflated with bibasilar infiltrates/atelectasis/effusion. Heart not enlarged. No new cardiopulmonary abnormalities. Comment: Preliminary interpretation made by C. No critical discrepancy.
[2021-06-08] MEDS ORDERED: TYLENOL EXTRA STRENGTH 500 MG PO PRN (09:08)
[2021-06-08] MEDS: Sodium Chloride 0.9% W/ 20 mEq KCl/LITER 1,000 ML IV SCH (09:27)
[2021-06-08] MEDS ORDERED: FEVERALL 650 MG PR PRN (09:53)
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
--- NOTE | 2021-06-08 11:34 | OP ---
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 PROCEDURE: Decompressive flexible sigmoidoscopy to approximately 40 cm. PROCEDURE PERFORMED BY: Kristal Osei M.D. COMPLICATIONS: None. ESTIMATED BLOOD LOSS: None. ANESTHESIA: MAC. SPECIMEN: None. HISTORY: This is a gentleman who presents with a large colon. He appears to have an ileus with gastric distention, small bowel distension and significant colonic distention with a loop of colon that appears to be a possible volvulus although the CT scan has a list of possible differentials and it does appear that there is an opening connecting his sigmoid colon and rectum because there is also air in the rectum as well. I can also visualize a small sac. I did discuss this with the patient. He was slightly tender on the left side. I discussed this with his caregiver as well as his guardian as well. His bowels are quite distended. We have put a NG tube in to decompress his stomach. I do think that decompressive flexible sigmoidoscopy will help. This will help us to clearly rule out an acute volvulus since this area does look of concern on his CT scan and this will also help us better define if there is another source of significant stricture here. We will also attempt to decrease some of the air and liquid stool in the portion of the colon that I will be able to visualize. Everyone agreed to the procedure. Consent had been obtained. I did personally talk to the patient, his caregiver as well as his guardian and so has anesthesia. DESCRIPTION OF PROCEDURE: The patient was taken to the endoscopy suite and laid in left lateral decubitus position. A complete time out performed. I first did a rectal exam. He had no masses here. The scope was then inserted without insufflation. He does already have air distending his rectum. He does have a layer of stool throughout the entire portion of rectum and colon that I am seeing and thus I cannot rule out any mucosal lesion. As I advanced the scope into the proximal aspect of the rectum, this was quite decompressed, did not easily open and had to irrigate to allow this to open. The tissue here is slightly edematous, very subtly red, this is an area where he could have volvuli. As I went through this area there was about 5 to 8 cm where I did have to continue to flush small amounts of saline to allow the mucosa here to open up. There was quite a bit of mucous here as well that appeared to be thickened and as soon as I got to the site, we entered what appeared to be an extremely distended sigmoid colon. I suctioned this immediately. There was only air. There was stool but very minimal stool. The stool mainly was thick and coating the sides of the mucosa. I continued to progress my scope very easily to about 40 cm at this point the scope started to loop and there appears to be further tortuosity of the colon which was as expected based on his CT scan and so at this point I started suctioning further to completely decompress the colon as best as we could and then withdrawing the scope. I did not see any active volvulus. There was some mild edema at the rectosigmoid region where there looked to be like there might have been some narrowing on the CT scan. However, this area does not have any obvious mass. It does not appear to be truly strictured. It was just decompressed here. My suspicion is that there was a partial twist here at some point or the patient does have a megacolon and ileus consistent with his chronic diagnosis and this area was just stuck together at this time with mucus because it did open when I flushed fluid near it. We continued to decompress fully to the level of the anus and then completely withdrew the scope. The patient's belly was very soft. I rechecked him after he recovered from anesthesia as well and his belly is very soft. He actually was not tender at all. His vitals are stable. He is being admitted to the floor. At this point I would recommend to continue NG tube decompression, check a 2-view abdominal x-ray in the morning, recheck his laboratory studies and exams tomorrow. It is okay for him to have a cup of ice chips as long as he is not vomiting or getting nauseous with his NG tube. We will see if he starts passing gas overnight.
[2021-06-08] MEDS ORDERED: Dextrose 5% -0.45 NaCl 1000 ML 1,000 ML IV SCH (13:30)
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
[2021-06-08] MEDS: clonazePAM PO SCH ×2 (17:33→22:00)
[2021-06-08] MEDS: Paxil 20 MG PO SCH (17:33)
[2021-06-08] MEDS: Risperdal 1 MG PO SCH ×2 (17:33→22:01)
[2021-06-08] MEDS: Flomax 0.4 MG PO SCH (17:33)
--- NOTE | 2021-06-08 19:06 | PCM.NOTE ---
Date and Time: 06/08/211902 Subjective Assessment: No acute issues overnight. no complaints of abdominal pain. no reported bm. no audible flatus. seems mentally baseline. Objective Exam Comments: 06/08/21 19:04 nad nonlabored resps rrr alert eyes open not talking to me, nods to some questions. nd, soft, nttp OBJECTIVE DATA Vital Signs: Vital Signs - 24 hr Temp Pulse Resp BP Pulse Ox 06/08/21 16:00 98.4 F 61 16 111/63 94 L 06/08/21 12:00 99.1 F 67 16 120/69 93 L 06/08/21 07:14 99.6 F 72 16 131/55 92 L 06/08/21 04:00 100.7 F 81 16 109/54 93 L 06/07/21 23:57 99.1 F 76 16 112/64 92 L 06/07/21 20:20 76 16 104/58 96 06/07/21 20:19 75 16 103/64 96 06/07/21 20:02 98.9 F 75 16 109/53 95 06/07/21 20:00 98.4 F 75 16 109/53 95 Pain Assessment - Last Documented Pain Intensity 0 Intake and Output: Intake & Output 06/06/21 06/07/21 06/08/21 06/09/21 11:59 11:59 11:59 11:59 Intake Total 900 Output Total 250 350 Balance 650 -350 Weight 51.4 kg 52 kg Lab Results: Lab Results-Last 24 Hours 06/07/21 06/08/21 06/08/21 Range/Units 23:30 04:45 04:45 WBC 5.8 (4.0-10.5) K/mm3 RBC 3.34 L (4.1-5.6) M/mm3 Hgb 10.2 L D (12.5-18.0) gm/dl Hct 31.8 L (42-50) % MCV 95.2 (78-100) fl MCH 30.5 (26-32) pg MCHC 32.1 (32-36) g/dl RDW 14.1 H (11.5-14.0) % Plt Count 167 (150-450) K/mm3 MPV 10.4 (7.5-11.0) fl Gran % 66.7 H (36.0-66.0) % Eos # (Auto) 0.09 (0-0.5) Absolute Lymphs (auto) 1.14 (1.0-4.6) Absolute Monos (auto) 0.68 (0.0-1.3) Lymphocytes % 19.7 L (24.0-44.0) % Monocytes % 11.7 (0.0-12.0) % Eosinophils % 1.6 (0.00-5.0) % Basophils % 0.3 (0.0-0.4) % Absolute Granulocytes 3.87 (1.4-6.9) Basophils # 0.02 (0-0.4) Sodium 138 (137-145) mmol/L Potassium 3.5 (3.5-5.1) mmol/L Chloride 106 (98-107) mmol/L Carbon Dioxide 23 (22-30) mmol/L Anion Gap 12.7 (5-15) MEQ/L BUN 10 (9-20) mg/dL Creatinine 0.34 L (0.66-1.25) mg/dL Estimated GFR > 60.0 ML/MIN Glucose 65 L (74-106) mg/dL POC Glucometer (74 to 106) mg/dL Calcium 7.9 L (8.4-10.2) mg/dL Total Bilirubin 0.60 (0.2-1.3) mg/dL AST 22 (17-59) U/L ALT 17 (0-50) U/L Alkaline Phosphatase 62 (38-126) U/L Serum Total Protein 5.5 L (6.3-8.2) g/dL Albumin 2.7 L (3.5-5.0) g/dL Influenza Type A Ag NEGATIVE (NEGATIVE) Influenza Type B Ag NEGATIVE (NEGATIVE) RSV (PCR) NEGATIVE (Negative) SARS-CoV-2 (PCR) NEGATIVE (NEGATIVE) 06/08/21 06/08/21 Range/Units 07:39 11:21 WBC (4.0-10.5) K/mm3 RBC (4.1-5.6) M/mm3 Hgb (12.5-18.0) gm/dl Hct (42-50) % MCV (78-100) fl MCH (26-32) pg MCHC (32-36) g/dl RDW (11.5-14.0) % Plt Count (150-450) K/mm3 MPV (7.5-11.0) fl Gran % (36.0-66.0) % Eos # (Auto) (0-0.5) Absolute Lymphs (auto) (1.0-4.6) Absolute Monos (auto) (0.0-1.3) Lymphocytes % (24.0-44.0) % Monocytes % (0.0-12.0) % Eosinophils % (0.00-5.0) % Basophils % (0.0-0.4) % Absolute Granulocytes (1.4-6.9) Basophils # (0-0.4) Sodium (137-145) mmol/L Potassium (3.5-5.1) mmol/L Chloride (98-107) mmol/L Carbon Dioxide (22-30) mmol/L Anion Gap (5-15) MEQ/L BUN (9-20) mg/dL Creatinine (0.66-1.25) mg/dL Estimated GFR ML/MIN Glucose (74-106) mg/dL POC Glucometer 76 62 L (74 to 106) mg/dL Calcium (8.4-10.2) mg/dL Total Bilirubin (0.2-1.3) mg/dL AST (17-59) U/L ALT (0-50) U/L Alkaline Phosphatase (38-126) U/L Serum Total Protein (6.3-8.2) g/dL Albumin (3.5-5.0) g/dL Influenza Type A Ag (NEGATIVE) Influenza Type B Ag (NEGATIVE) RSV (PCR) (Negative) SARS-CoV-2 (PCR) (NEGATIVE) Radiology Exams: Radiology Procedures Category Date Time Status ABDOMEN 2 VIEW Routine Exams 06/08/21 08:00 Completed ABDOMEN AND PELVIS W/0 CONTRAS [CT] Stat Exams 06/07/21 13:41 Completed CHEST 1 VIEW (PORTABLE) Stat Exams 06/07/21 11:12 Completed CHEST 1 VIEW (PORTABLE) Stat Exams 06/07/21 16:58 Completed CHEST 1 VIEW (PORTABLE) Stat Exams 06/08/21 02:44 Completed Multi-Disciplinary Progress Notes: Multi-Disciplinary Progress Notes 06/08/21 10:53 Case Management Note by Kylie Celis CALLED [facility] TO DISCUSS DC PLANS AND CASE MANAGEMENT NEEDS- NO ANSWER- LM Initialized on 06/08/21 10:53 - END OF NOTE Assessment/Plan (1) Constipation Current Visit: No Status: Acute Assessment & Plan: 50yo s/p decompressive colonoscopy for concern of possible volvulus vs ileus. seems more of an ileus. no distension today benign exam. -ok to start liquids and advance gradually as tolerated Code(s): K59.00 - CONSTIPATION, UNSPECIFIED
[2021-06-08] MEDS: DEXTROSE 5% -NACL 0.9% 1000 ML + KCl 20 MEQ 1,000 ML IV SCH (20:19)
[2021-06-08] MEDS: lamICTAL 100MG TABLET PO SCH (22:00)
[2021-06-08] MEDS: LIORESAL 10 MG PO SCH (22:00)
[2021-06-08] MEDS ORDERED: RISPERIDONE 2 MG PO SCH (22:00)
[2021-06-09] MEDS ORDERED: TYLENOL 325 MG PO PRN (03:23)
[2021-06-09] MEDS: DEXTROSE 5% -NACL 0.9% 1000 ML + KCl 20 MEQ 1,000 ML IV SCH ×3 (03:28→18:24)
[2021-06-09] MEDS: Zosyn 3.375 GM Vial 3.375 GM in Sodium Chloride 100ML MINI-BAG PLUS 100 ML IV SCH ×3 (07:56→17:14)
[2021-06-09] MEDS: clonazePAM PO SCH ×3 (08:30→22:01)
[2021-06-09] MEDS: Klor Con 10 MEQ PO SCH (09:22)
[2021-06-09] MEDS: Risperdal 1 MG PO SCH ×2 (09:23→22:01)
[2021-06-09] MEDS: lamICTAL 100MG TABLET PO SCH ×2 (09:23→22:01)
[2021-06-09] MEDS: Paxil 20 MG PO SCH (09:23)
[2021-06-09] MEDS: LIORESAL 10 MG PO SCH ×2 (09:23→22:01)
[2021-06-09] MEDS: Flomax 0.4 MG PO SCH (09:23)
[2021-06-09] MEDS ORDERED: NON-FORMULARY ITEM (Potassium Chloride [Potassium Chloride] 40 MEQ/15 ML Liquid) PO SCH (10:00)
[2021-06-09] MEDS ORDERED: PAROXETINE HCL 40 MG PO SCH (10:00)
[2021-06-10] MEDS: Zosyn 3.375 GM Vial 3.375 GM in Sodium Chloride 100ML MINI-BAG PLUS 100 ML IV SCH ×2 (00:47→05:59)
[2021-06-10] MEDS: DEXTROSE 5% -NACL 0.9% 1000 ML + KCl 20 MEQ 1,000 ML IV SCH (01:28)
[2021-06-10 05:44] LABS: Hematocrit 35.5 % (42-50); Hemoglobin 11.5 gm/dl (12.5-18.0); Mean Cell Volume 93.4 fl (78-100); Mean Corpuscular Hemoglobin 30.3 pg (26-32); Mean Corpuscular Hgb Concent. 32.4 g/dl (32-36); Mean Platelet Volume 10.3 fl (7.5-11.0); Platelet Count 196 K/mm3 (150-450); Red Cell Distribution Width 14.1 % (11.5-14.0); White Blood Count 5.7 K/mm3 (4.0-10.5)
[2021-06-10 06:01] LABS: ALKALINE PHOSPHATASE 61 U/L (38-126); ANION GAP 8.9 MEQ/L (5-15); CHLORIDE 104 mmol/L (98-107); Calcium 8.3 mg/dL (8.4-10.2); Carbon Dioxide 28 mmol/L (22-30); Creatinine 1 0.35 mg/dL (0.66-1.25); EST GLOMERULAR FILTRATION RATE > 60.0 ML/MIN; Glucose 115 mg/dL (74-106); Potassium 3.7 mmol/L (3.5-5.1); SGOT/AST 21 U/L (17-59); SGPT/ALT 17 U/L (0-50); SODIUM 138 mmol/L (137-145); Total Protein 6.1 g/dL (6.3-8.2)
[2021-06-10 06:04] LABS: BLOOD UREA NITROGEN < 2 mg/dL (9-20)
[2021-06-10] MEDS: clonazePAM PO SCH (08:06)
[2021-06-10 08:33] VITALS: BP 131/72; PULSE 56; O2SAT 96
--- NOTE | 2021-06-10 08:42 | XRAY ---
Indication: Follow-up ileus. Comparison: June 08, 2021. KUB demonstrates increased mild uniformly air distended stomach and bowel loops without focal bowel dilatation/obstruction. Normal colonic bowel gas with again mild diffuse fecal stasis. NG tube removed. Solid organs unremarkable. Osseous structures intact. No new/acute findings.
[2021-06-10] MEDS: Klor Con 10 MEQ PO SCH (09:14)
[2021-06-10] MEDS: LIORESAL 10 MG PO SCH (09:14)
[2021-06-10] MEDS: Flomax 0.4 MG PO SCH (09:14)
[2021-06-10] MEDS: Paxil 20 MG PO SCH (09:14)
[2021-06-10] MEDS: Risperdal 1 MG PO SCH (09:14)
[2021-06-10] MEDS: lamICTAL 100MG TABLET PO SCH (09:14)
== END 2021-06-10 11:34 | disposition home health service (06) ==
LOC: ED 10:45 → MED SURG 19:42
PROVIDERS: ADMIT Surgery; ATTEND Family Medicine
DX: K59.39 Other megacolon (principal); K56.2 Volvulus; K59.00 Constipation, unspecified; G82.50 Quadriplegia, unspecified; I95.9 Hypotension, unspecified; E87.6 Hypokalemia; Z20.828 Contact with and (suspected) exposure to other viral communicable diseases; Z79.899 Other long term (current) drug therapy
CPT/HCPCS: 0241U; 36000; 36415; 45337; 71045; 74018; 74021; 74176; 80053; 81001; 82550; 82947; 83605; 85025; 85027; 87040; 87077; 87086; 87186; 93005; 93041; 93268; 94760; 99000; 99285; G0378; 99140; J2704; A9270-GY